=== PATIENT | female | born 1995 | race Caucasian/White ===

== ENCOUNTER 2020-02-03 18:40 | Emergency (ER) | payer BC ==
[2020-02-03] MEDS ORDERED: Ketorolac 60 MG/2 ML SDV IM ONE (19:08)
[2020-02-03] MEDS ORDERED: Cyclobenzaprine 10 MG Tab PO ONE (19:08)
--- NOTE | 2020-02-03 19:48 | EDM.PDOC ---
ED HPI GENERAL MEDICAL PROBLEM - General Chief Complaint: Back Pain or Injury Stated Complaint: SEVERE BACK PAIN Time Seen by Provider: 02/03/20 19:40 Source of Information: Reports: Patient History Limitations: Reports: No Limitations - History of Present Illness INITIAL COMMENTS - FREE TEXT/NARRATIVE: Patient presented to the ED because of sudden onset of low back pain when she sat down on the couch. The pain is sharp,7/10, non-radiating, worse with movements and bending. 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 x2; 02/2019 and 12/2019 Psychiatric History: Reports: Anxiety, Depression - Past Surgical History Other GI Surgeries/Procedures: gallbladder removal 04/2019 Social & Family History - Tobacco Use Smoking Status *Q: Never Smoker - Caffeine Use Caffeine Use: Reports: Soda - Recreational Drug Use Recreational Drug Use: No ED ROS GENERAL - Review of Systems Review Of Systems: See Below Constitutional: Reports: No Symptoms HEENT: Reports: No Symptoms Respiratory: Reports: No Symptoms Cardiovascular: Reports: No Symptoms Endocrine: Reports: No Symptoms GI/Abdominal: Reports: No Symptoms : Reports: No Symptoms Musculoskeletal: Reports: Back Pain Skin: Reports: No Symptoms Neurological: Reports: No Symptoms Psychiatric: Reports: No Symptoms ED EXAM,LOWER BACK PAIN/INJURY - Physical Exam Exam: See Below Exam Limited By: No Limitations General Appearance: Alert, No Apparent Distress Eye Exam: Bilateral Eye: PERRL Ears: Normal External Exam, Normal Canal Nose: Normal Inspection, Normal Mucosa Throat/Mouth: Normal Inspection, Normal Lips, Normal Teeth Head: Atraumatic, Normocephalic Neck: Normal Inspection, Supple, Non-Tender Respiratory/Chest: No Respiratory Distress, Lungs Clear, Normal Breath Sounds Cardiovascular: Normal Peripheral Pulses, Regular Rate, Rhythm, No Edema GI/Abdominal: Normal Bowel Sounds, Soft, Non-Tender Back Exam: Normal Inspection, Full Range of Motion, Muscle Spasm Extremities: Normal Inspection, Normal Range of Motion Course - Vital Signs Text/Narrative:: Toradol 60 mg IM x1 Flexeril 10 mg po x1 Last Recorded V/S: Last Vital Signs Temp 36.2 C 02/03/20 18:40 Pulse 93 02/03/20 18:40 Resp 16 02/03/20 18:40 BP 110/76 02/03/20 18:40 Pulse Ox 100 02/03/20 18:40 - Orders/Labs/Meds Meds: Medications Discontinued Medications Generic Name Dose Route Start Last Admin Trade Name Freq PRN Reason Stop Dose Admin Cyclobenzaprine HCl 10 mg 02/03/20 19:08 02/03/20 19:31 Flexeril PO 02/03/20 19:09 10 mg ONETIME ONE Administration Ketorolac Tromethamine 60 mg 02/03/20 19:08 02/03/20 19:31 Toradol IM 02/03/20 19:09 60 mg ONETIME ONE Administration Departure - Departure Time of Disposition: 20:00 Disposition: Home, Self-Care 01 Condition: Good Clinical Impression: Sprain, lumbosacral - Discharge Information Prescriptions: Cyclobenzaprine [Flexeril] 10 mg PO TID PRN #15 tab PRN Reason: Spasms Ibuprofen 800 mg PO TID PRN #30 tablet PRN Reason: Pain Referrals: PCP,None [Primary Care Provider] - Sepsis Event Note (ED) - Evaluation Sepsis Screening Result: No Definite Risk - Focused Exam Vital Signs: Vital Signs Temp Pulse Resp BP Pulse Ox 02/03/20 18:40 36.2 C 93 16 110/76 100
[2020-02-03] MEDS ORDERED: Acetaminophen/HYDROcodone 325-5 MG Tab PO STA (19:53)
== END 2020-02-03 20:04 | disposition home or self-care (01) ==
LOC: FB.ED 18:40
DX: S33.9XXA Sprain of unspecified parts of lumbar spine and pelvis, initial encounter (principal); X58.XXXA Exposure to other specified factors, initial encounter
CPT/HCPCS: 96372; 99283; A9270; J1885

== ENCOUNTER 2021-12-14 20:18 | Emergency (ER) | payer BC | END 2021-12-14 21:16 | disposition home or self-care (01) | LOC: FB.ED 20:18 | DX: S91.311A Laceration without foreign body, right foot, initial encounter (principal); Z79.899 Other long term (current) drug therapy; W18.40XA Slipping, tripping and stumbling without falling, unspecified, initial encounter | CPT/HCPCS: 99281; 99282 ==